=== PATIENT | male | born 1995 | race Caucasian/White ===

== ENCOUNTER 2018-08-23 22:06 | Emergency (ER) | payer SELFPAY ==
--- NOTE | 2018-08-23 22:43 | ED.PDOC ---
History of Present Illness - General Chief Complaint: Respiratory Problem Stated Complaint: nose bleed, cough Time Seen by Provider: 08/23/18 22:40 Source: patient Exam Limitations: no limitations - History of Present Illness Initial Comments: Jameel Trevino 23 y/o male came to ER with non productive cough since June 2018 and the last 3 days started having nasal congestion.Denies history of asthma,fever ,sob,but with occasional nosebleeds. Timing/Duration: constant, other - see hpi Severity: moderate Improving Factors: nothing Worsening Factors: nothing Associated Symptoms: other - see hpi Allergies/Adverse Reactions: Allergies NO KNOWN ALLERGY Allergy (Verified 08/23/18 22:47) Home Medications: Ambulatory Orders Benzonatate Perles [Tessalon Perles] 200 mg PO BID #20 cap 08/24/18 Cefuroxime Axetil [Ceftin] 500 mg PO Q12H #14 tablet 08/24/18 predniSONE 20 mg PO DAILY #10 tab 08/24/18 Review of Systems - Review of Systems EENTM: States: see HPI, nose congestion Respiratory: States: see HPI, cough All other Systems: Reviewed and Negative, No Change from Baseline Past Medical History (General) - Patient Medical History Hx Asthma: No Surgical History: no surgical history - Vaccination History Hx Influenza Vaccination: No - Social History Hx Tobacco Use: No Hx Alcohol Use: No Hx Substance Use: No Hx Substance Use Treatment: No Hx Physical Abuse: No Hx Emotional Abuse: No Family Medical History - Family History Father Family History: Unknown Physical Exam - Physical Exam General Appearance: Alert, Comfortable, No apparent distress Eye Exam: bilateral normal Ears, Nose, Throat: hearing grossly normal, normal ENT inspection, normal pharynx, nasal congestion Neck: non-tender, normal inspection Respiratory: lungs clear, normal breath sounds, no respiratory distress Cardiovascular/Chest: normal peripheral pulses, regular rate, rhythm, no murmur Gastrointestinal/Abdominal: non tender, soft, no organomegaly Back Exam: no CVA tenderness, no vertebral tenderness Neurologic: alert, oriented x 3 Progress - Progress Progress: 08/23/18 23:08 Vital Signs - 8 hr 08/23/18 22:32 Temperature 100.8 F H Pulse Rate [ 98 H Right] Respiratory 18 Rate Blood Pressure 145/87 [Left Arm] O2 Sat by Pulse 97 Oximetry - Results/Orders Results/Orders: Negative flu swab - EKG/XRAY/CT XRAY: chest - no acute pulmonary disease Departure - Departure Clinical Impression: Upper respiratory infection Qualifiers: URI type: unspecified URI Qualified Code(s): J06.9 - Acute upper respiratory infection, unspecified Time of Disposition: 00:25 Disposition: Discharge to Home or Self Care Condition: Good Departure Forms: ED Discharge - Pt. Copy, Patient Portal Self Enrollment Referrals: SONA RODRIGUEZ [Primary Care Provider] - 1-2 Weeks Prescriptions: Benzonatate Perles [Tessalon Perles] 200 mg PO BID #20 cap Cefuroxime Axetil [Ceftin] 500 mg PO Q12H #14 tablet predniSONE 20 mg PO DAILY #10 tab Home Medications: Ambulatory Orders Benzonatate Perles [Tessalon Perles] 200 mg PO BID #20 cap 08/24/18 Cefuroxime Axetil [Ceftin] 500 mg PO Q12H #14 tablet 08/24/18 predniSONE 20 mg PO DAILY #10 tab 08/24/18 Additional Instructions: Continue with Afrin nose spray 2 sprays each nose am/pm 3 days on 3 days off until better;May take Benadryl capsule 50 mg at bedtime(over the counter)Coninue with Zyrtec one tablet in am
--- NOTE | 2018-08-23 23:03 | RAD ---
EXAM: Chest,1 View CLINICAL INDICATION: Cough COMPARISON: 06/25/2011 FINDINGS: A single view of the chest was obtained. The heart size is normal. The pulmonary vascularity is unremarkable. The lungs are clear. There is no consolidation, infiltrate, pleural effusion, or pneumothorax. IMPRESSION: No evidence of active pulmonary disease. Electronically signed by: Saqib He MD 08/23/2018 11:01 PM [employer]
[2018-08-23] MEDS ORDERED: predniSONE 20 MG TAB PO ONE (23:06)
[2018-08-23] MEDS ORDERED: diphenhydrAMINE HCL 25 MG CAP PO ONE (23:06)
[2018-08-23] MEDS ORDERED: BENZONATATE PERLES 100 MG CAP PO ONE (23:06)
[2018-08-23] MEDS ORDERED: OXYMETAZOLINE NASAL SPRAY 15 ML BTTL BNAS PRN (23:07)
[2018-08-23 23:50] VITALS: O2SAT 98
[2018-08-24 00:55] VITALS: BP 146/89; TEMP 98.9
== END 2018-08-24 00:55 | disposition home or self-care (01) ==
LOC: ER 22:06
DX: J06.9 Acute upper respiratory infection, unspecified (principal)
CPT/HCPCS: 71045; 87804; J7512; Q0163